=== PATIENT | male | born 1985 | race American Indian/Alaskan Native ===

== ENCOUNTER 2017-01-27 02:20 | Emergency (ER) | payer SELFPAY ==
[2017-01-27 04:40] LABS: Anion Gap 22 mmol/L; BUN/Creatinine Ratio 17.14; Basophils % (Auto) 0.5 % (0.0-1.8); Blood Urea Nitrogen 12 mg/dL (9-20); Calcium 8.7 mg/dL (8.4-10.2); Carbon Dioxide 22 mmol/L (22-30); Chloride 98.8 mmol/L (98-107); Eosinophils % (Auto) 0.1 % (0.0-4.3); Glucose 114 mg/dL (75-100); Hematocrit 47.6 % (35.5-45.6); Hemoglobin 16.1 gm/dl (11.8-15.2); Mean Corpuscular HGB Conc 34 % (32-34); Mean Corpuscular Hemoglobin 33 pg (28-32); Mean Corpuscular Volume 97 fl (84-94); Platelet Count 226 K/mm3 (140-440); Potassium 3.7 mmol/L (3.6-5.0); Red Blood Count 4.92 M/mm3 (3.65-5.03); Sodium 139 mmol/L (137-145); White Blood Count 17.5 K/mm3 (4.5-11.0)
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
[2017-01-27] MEDS ORDERED: ANCEF/NS 1 GM/50 ML 1 GM/50 ML BAG IV ONE (05:40)
[2017-01-27] MEDS ORDERED: BOOSTRIX IM ONE (05:40)
[2017-01-27] MEDS ORDERED: NACL 0.9% 1000 ML 1,000 ML ONE (06:15)
[2017-01-27] MEDS ORDERED: NACL 0.9% 1000 ML 1,000 ML IV ONE ×2 (06:20→07:34)
[2017-01-27 06:32] VITALS: BP 136/89
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
[2017-01-27] MEDS ORDERED: DIPRIVAN 10 MG/ML 1,000 MG/100 ML BOTTLE IV SCH (07:00)
[2017-01-27] MEDS ORDERED: DIPRIVAN 10 MG/ML 1,000 MG/100 ML BOTTLE IV ONE (07:07)
[2017-01-27] MEDS ORDERED: ZEMURON IV ONE (07:30)
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
[2017-01-27] MEDS ORDERED: ATIVAN ONE (07:32)
[2017-01-27] MEDS ORDERED: ATIVAN IV ONE (07:45)
== END 2017-01-27 07:35 | disposition other institution (70) ==
LOC: ED 02:20
DX: S22.42XA Multiple fractures of ribs, left side, initial encounter for closed fracture (principal); S02.40DA Maxillary fracture, left side, initial encounter for closed fracture; S05.8X2A Other injuries of left eye and orbit, initial encounter; J98.2 Interstitial emphysema; F10.129 Alcohol abuse with intoxication, unspecified; R41.82 Altered mental status, unspecified; F17.200 Nicotine dependence, unspecified, uncomplicated
CPT/HCPCS: 31500; 36415; 70450; 70486; 71010; 72125; 80048; 85025; 90471; 90715; 96361; 96365; 96375; 99285; G0480; J0690; J2060; J2704; J7030; 80320

== ENCOUNTER 2017-05-12 10:59 | Emergency (ER) | payer SELFPAY ==
[2017-05-12 11:19] VITALS: BP 120/93
[2017-05-12] MEDS ORDERED: TORADOL IM ONE (11:40)
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
[2017-05-12 11:51] LABS: Basophils % (Auto) 1.5 % (0.0-1.8); Eosinophils % (Auto) 2.3 % (0.0-4.3); Hematocrit 43.5 % (35.5-45.6); Hemoglobin 15.2 gm/dl (11.8-15.2); Mean Corpuscular HGB Conc 35 % (32-34); Mean Corpuscular Hemoglobin 34 pg (28-32); Mean Corpuscular Volume 98 fl (84-94); Platelet Count 207 K/mm3 (140-440); Red Blood Count 4.44 M/mm3 (3.65-5.03); Red Cell Distribution Width 14.4 % (13.2-15.2); White Blood Count 4.9 K/mm3 (4.5-11.0)
[2017-05-12 11:55] LABS: Alanine Aminotransferase 69 units/L (7-56); Albumin 4.6 g/dL (3.9-5); Albumin/Globulin Ratio 1.4 %; Alkaline Phosphatase 74 units/L (35-129); Anion Gap 20 mmol/L; BUN/Creatinine Ratio 13; Blood Urea Nitrogen 8 mg/dL (9-20); Calcium 9.3 mg/dL (8.4-10.2); Carbon Dioxide 24 mmol/L (22-30); Chloride 100.5 mmol/L (98-107); Glucose 91 mg/dL (75-100); Potassium 3.9 mmol/L (3.6-5.0); Sodium 141 mmol/L (137-145)
== END 2017-05-12 13:26 | disposition home or self-care (01) ==
LOC: ED 10:59
DX: K02.9 Dental caries, unspecified (principal); K05.10 Chronic gingivitis, plaque induced; F17.210 Nicotine dependence, cigarettes, uncomplicated
CPT/HCPCS: 36415; 80053; 85025; 96372; 99283; J1885

== ENCOUNTER 2017-05-13 21:25 | Emergency (ER) | payer SELFPAY ==
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
[2017-05-14] MEDS ORDERED: NACL ONE (06:12)
--- NOTE | 2017-05-14 07:43 | Cat Scan Report ---
CT FACIAL BONES WITH CONTRAST History: Jaw swelling. Technique: Helical CT following IV contrast. Sagittal and coronal reformatted images. Comparison: 01/27/17. Findings: Internally fixated left mandible fracture and left inferior orbital wall fracture are noted since the previous examination. Fracture lines are still evident in the left mandible. There is minimal lucency surrounding the most superior screw which fixates the left mandible fracture. This could represent mild loosening or be associated with infection. Infection is thought less likely as there are no advanced inflammatory changes in this area. Please correlate with the patient. No new acute facial fracture is demonstrated. The sinuses are well aerated. Minimal mucosal thickening in the ethmoid air cells is noted. The mastoid air cells are within normal limits. There is mild nonspecific soft tissue swelling and skin thickening along the left jaw line. No abscess or soft tissue gas is visualized. No bony destruction to suggest osteomyelitis. No bulky adenopathy or necrotic lymph nodes. Impression: Internally fixated left facial fractures as described. Minimal lucency surrounding the most superior screw of the left mandibular fixation device. See above. No acute bony abnormality is detected. Nonspecific left facial soft tissue swelling. This may represent a cellulitis. No abscess is visualized.
[2017-05-14 08:29] VITALS: BP 124/70
== END 2017-05-14 08:28 | disposition home or self-care (01) ==
LOC: ED 21:25
DX: L03.211 Cellulitis of face (principal); F17.200 Nicotine dependence, unspecified, uncomplicated
CPT/HCPCS: 70487; 99283; Q9967

== ENCOUNTER 2017-06-02 21:10 | Emergency (ER) | payer SELFPAY ==
[2017-06-02 21:16] VITALS: BP 135/92
== END 2017-06-02 22:00 | disposition left against medical advice (07) ==
LOC: ED 21:10
DX: K08.89 Other specified disorders of teeth and supporting structures (principal); H92.09 Otalgia, unspecified ear; Z53.21 Procedure and treatment not carried out due to patient leaving prior to being seen by health care provider

== ENCOUNTER 2017-06-03 02:04 | Emergency (ER) | payer SELFPAY ==
[2017-06-03 02:18] VITALS: BP 132/94
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
[2017-06-03] MEDS ORDERED: TYLENOL #3 PO ONE (03:39)
[2017-06-03] MEDS ORDERED: MOTRIN PO ONE (03:39)
== END 2017-06-03 03:47 | disposition home or self-care (01) ==
LOC: ED 02:04
DX: K08.89 Other specified disorders of teeth and supporting structures (principal); F17.200 Nicotine dependence, unspecified, uncomplicated
CPT/HCPCS: 99282

== ENCOUNTER 2018-12-21 08:52 | Emergency (ER) | payer SELFPAY | END 2018-12-21 08:54 | disposition left against medical advice (07) | LOC: ED 08:52 | DX: F10.10 Alcohol abuse, uncomplicated (principal); Z53.21 Procedure and treatment not carried out due to patient leaving prior to being seen by health care provider ==

== ENCOUNTER 2018-12-25 03:56 | Emergency (ER) | payer SELFPAY ==
[2018-12-25 04:11] VITALS: BP 136/88
[2018-12-25] MEDS ORDERED: AMMONIA INHALANT IH ONE ×2 (05:06→05:08)
[2018-12-25] MEDS ORDERED: BOOSTRIX IM ONE (05:09)
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
== END 2018-12-25 06:39 | disposition home or self-care (01) ==
LOC: ED 03:56
DX: S61.232A Puncture wound without foreign body of right middle finger without damage to nail, initial encounter (principal); F17.200 Nicotine dependence, unspecified, uncomplicated; Z79.899 Other long term (current) drug therapy; X58.XXXA Exposure to other specified factors, initial encounter; Y93.89 Activity, other specified; Y92.89 Other specified places as the place of occurrence of the external cause; Y99.8 Other external cause status
CPT/HCPCS: 90471; 90715; 99281

== ENCOUNTER 2018-12-30 05:16 | Emergency (ER) | payer SELFPAY ==
[2018-12-30] MEDS ORDERED: AMMONIA INHALANT IH ONE (05:28)
--- NOTE | 2018-12-30 05:50 | XRay Report ---
PROCEDURE: XR CHEST ROUTINE 2V TECHNIQUE: PA and lateral chest radiographs were obtained. HISTORY: CP COMPARISONS: January 27, 2017. FINDINGS: Heart: Normal. Mediastinum/Vessels: Normal. Lungs/Pleural space: Lungs are expanded. There are no infiltrates.. There is no pleural effusion or pneumothorax. Bony thorax: There are multiple old healed left rib fractures.. IMPRESSION: Heart size is normal.. Lungs are expanded. There are no infiltrates.. There is no pleural effusion or pneumothorax. There are multiple old healed left rib fractures.. This document is electronically signed by Oh Blandon MD., December 30 2018 05:48:36 AM ET
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
[2018-12-30 08:53] LABS: Basophils % (Auto) 0.9 % (0.0-1.8); Eosinophils # (Auto) 0.1 K/mm3 (0.0-0.4); Eosinophils % (Auto) 1.5 % (0.0-4.3); Hematocrit 46.3 % (35.5-45.6); Lymphocytes # (Auto) 1.6 K/mm3 (1.2-5.4); Lymphocytes % (Auto) 30.3 % (13.4-35.0); Mean Corpuscular HGB Conc 35 % (32-34); Mean Corpuscular Volume 102 fl (84-94); Monocytes # (Auto) 0.4 K/mm3 (0.0-0.8); Platelet Count 160 K/mm3 (140-440); Red Blood Count 4.56 M/mm3 (3.65-5.03); Red Cell Distribution Width 13.6 % (13.2-15.2)
[2018-12-30 09:02] LABS: BUN/Creatinine Ratio 10; Blood Urea Nitrogen 8 mg/dL (9-20); Calcium 8.7 mg/dL (8.4-10.2); Hemolysis Index 32
[2018-12-30 09:12] LABS: Free T4 (Free Thyroxine) 1.23 ng/dL (0.76-1.46)
[2018-12-30 12:13] VITALS: BP 91/57
== END 2018-12-30 13:05 | disposition home or self-care (01) ==
LOC: ED 05:16
DX: R07.89 Other chest pain (principal); F17.200 Nicotine dependence, unspecified, uncomplicated
CPT/HCPCS: 36415; 71046; 80048; 84439; 84443; 84484; 85025; 85379; 93005; 93010

== ENCOUNTER 2018-12-31 08:44 | Emergency (ER) | payer SELFPAY ==
[2018-12-31 09:11] VITALS: BP 120/73
== END 2018-12-31 09:00 | disposition left against medical advice (07) ==
LOC: ED 08:44
DX: R07.89 Other chest pain (principal); Z53.21 Procedure and treatment not carried out due to patient leaving prior to being seen by health care provider

== ENCOUNTER 2019-01-04 02:34 | Emergency (ER) | payer SELFPAY ==
[2019-01-04 02:42] VITALS: BP 125/73
== END 2019-01-04 04:05 | disposition left against medical advice (07) ==
LOC: ED 02:34
DX: K08.89 Other specified disorders of teeth and supporting structures (principal); Z53.21 Procedure and treatment not carried out due to patient leaving prior to being seen by health care provider

== ENCOUNTER 2019-03-12 11:26 | Emergency (ER) | payer SELFPAY ==
[2019-03-12 11:44] VITALS: BP 121/91
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
[2019-03-12] MEDS ORDERED: FLEXERIL PO ONE (13:11)
[2019-03-12] MEDS ORDERED: TORADOL IM ONE (13:11)
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
== END 2019-03-12 14:44 | disposition home or self-care (01) ==
LOC: ED 11:26
DX: S82.002G Unspecified fracture of left patella, subsequent encounter for closed fracture with delayed healing (principal); F17.200 Nicotine dependence, unspecified, uncomplicated; X58.XXXD Exposure to other specified factors, subsequent encounter
CPT/HCPCS: 96372; 99282; J1885

== ENCOUNTER 2019-04-12 03:45 | Emergency (ER) | payer SELFPAY ==
[2019-04-12 03:50] VITALS: BP 130/80
[2019-04-12] MEDS ORDERED: HYDROcodone/ACETAMINOPHEN 5-325 MG TAB PO ONE (06:38)
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
== END 2019-04-12 06:58 | disposition home or self-care (01) ==
LOC: ED 03:45
DX: M25.562 Pain in left knee (principal); F17.200 Nicotine dependence, unspecified, uncomplicated; Z79.899 Other long term (current) drug therapy; X58.XXXA Exposure to other specified factors, initial encounter; Y93.89 Activity, other specified; Y92.098 Other place in other non-institutional residence as the place of occurrence of the external cause; Y99.8 Other external cause status
CPT/HCPCS: 99282

== ENCOUNTER 2019-04-19 00:48 | Emergency (ER) | payer SELFPAY ==
[2019-04-19 00:56] VITALS: BP 145/93
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
== END 2019-04-19 02:00 | disposition left against medical advice (07) ==
LOC: ED 00:48
DX: M25.562 Pain in left knee (principal)
CPT/HCPCS: 99281

== ENCOUNTER 2019-04-20 00:58 | Emergency (ER) | payer SELFPAY ==
[2019-04-20] MEDS ORDERED: ACETAMINOPHEN W/CODEINE 300-30 MG TAB PO ONE (01:48)
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
[2019-04-20 07:19] VITALS: BP 130/74
== END 2019-04-20 03:25 | disposition left against medical advice (07) ==
LOC: ED 00:58
DX: M25.562 Pain in left knee (principal); G89.29 Other chronic pain
CPT/HCPCS: 99282

== ENCOUNTER 2019-07-31 19:18 | Emergency (ER) | payer SELFPAY ==
[2019-07-31 19:54] VITALS: BP 116/72
== END 2019-07-31 20:30 | disposition left against medical advice (07) ==
LOC: ED 19:18
DX: H10.9 Unspecified conjunctivitis (principal); Z53.21 Procedure and treatment not carried out due to patient leaving prior to being seen by health care provider

== ENCOUNTER 2019-09-20 14:33 | Emergency (ER) | payer SELFPAY ==
[2019-09-20 14:52] VITALS: BP 123/92
--- NOTE | 2019-09-20 18:46 | Emergency Department Report ---
Chief Complaint: Upper Respiratory Infection Stated Complaint: FEVER Time Seen by Provider: 09/20/19 18:26 - HPI History of Present Illness: Patient is a 33-year-old male presents the emergency room with complaints of cold-like symptoms that began 2 days ago. He has associated dry cough, generalized body aches, 1 episode of vomiting, chills. He denies any diarrhea, fever, chest pain, shortness of breath. He states that 1 of his children is at home with cold-like symptoms as well. He denies any past medical history allergies to medications. He denies any daily medications. He states that he has been taking NyQuil and ibuprofen. He states that he is a smoker. Vitals are normal Patient is afebrile, no tachycardia, normal oxygen saturation on exam: Non toxic appearing, no acute distress atraumatic, normocephalic normal appearance of the eyes, PERRL, EOMI, no periorbital edema or ecchymosis moist mucus membranes clear nasal drainage bilateral nares, no sinus ttp, normal oropharynx, no tonsilar hypertrophy or exudates, normal TMs and canals bilateraly regular heart rate and rhythm, no gallops, no rubs, no murmurs breath sounds are clear bilaterally, no w/r/r, no respiratory distress, no stridor, no accessory muscle use, no decreased breath sounds A&O x4, no focal neuro deficit skin is warm, dry, intact Examination consistent with viral-like illness No clinical signs or symptoms of pneumonia, pharyngitis, otitis No clinical signs of dehydration Discussed the importance of oral rehydration with patient Discussed symptomatic and supportive care with patient Patient referred to a primary care physician Discussed strict return precautions with patient Medical screening examination performed and there is no threat to life or limb at this time - Exam Vital Signs: Vital Signs 09/20/19 14:49 Temperature 97.8 F Pulse Rate 90 Respiratory 20 Rate Blood Pressure 123/92 O2 Sat by Pulse 98 Oximetry MSE screening note: Focused history and physical exam performed. ED Disposition for MSE Clinical Impression: Viral illness Disposition: Z-07 MED SCREENING EXAM-LEFT Is pt being admited?: No Does the pt Need Aspirin: No Condition: Stable Instructions: Viral Syndrome (ED) Additional Instructions: Please increase your fluid intake over the next several days. May take Mucinex or TheraFlu [id number]. May alternate Tylenol or ibuprofen as needed for fever above 100.4 or greater. Follow-up with a primary care doctor in the next 3 to 5 days for reexamination. Return to the emergency room for any new or worsening symptoms including but not limited to shortness of breath, chest pain, productive cough with white or brown sputum, increasing fevers, inability to tolerate by mouth intake, etc. Referrals: CONCHIS FLANNERY MD [Staff Physician] - 3-5 Days [facility] [Outside] - 3-5 Days [facility] [Outside] - 3-5 Days Forms: Work/School Release Form(ED) Time of Disposition: 18:47 Print Language: MONGOLIAN
== END 2019-09-20 18:55 | disposition left against medical advice (07) ==
LOC: ED 14:33
DX: B34.9 Viral infection, unspecified (principal)
CPT/HCPCS: 99281

== ENCOUNTER 2019-10-09 19:08 | Emergency (ER) | payer SELFPAY ==
[2019-10-09 19:23] VITALS: BP 129/87
--- NOTE | 2019-10-09 19:25 | Emergency Department Report ---
Stated Complaint: MEDICAL CLEARANCE Time Seen by Provider: 10/09/19 19:18 - HPI History of Present Illness: This is a 33-year-old male nontoxic, well in appearance with no signs of distress presents to the ED for work excuse. Patient stated he was not at work for 2 days due to daughter sick. Patient stated he is asymptotic. Denies any pain or medical complaints. Patient denies any cough or URI symptoms. Patient denies any urinary symptoms. Patient denies any fever, chills, headache, nausea, vomiting, chest pain or shortness of breathe. denies any other symptoms or complaints. Denies any allergies or PMH. - Exam Physical Exam: normal physical exam. MSE screening note: Focused history and physical exam performed. Due to findings the following was ordered: ED Medical Decision Making - Medical Decision Making This is a 33-year-old male that presents with nonmedical emergency complaint. Patient is just requested for a work excuse. Patient denies any symptoms. Patient was instructed to Follow-up with a primary care doctor in 3-5 days or if symptoms worsen and continue return to emergency room as soon as possible. At time of discharge, the patient does not seem toxic or ill in appearance. No acute signs of distress noted. Patient agrees to discharge treatment plan of care. No further questions noted by the patient. ED Disposition for MSE Clinical Impression: Encounter to obtain excuse from work Disposition: Z-07 MED SCREENING EXAM-LEFT Is pt being admited?: No Does the pt Need Aspirin: No Condition: Stable Additional Instructions: Follow-up with a primary care doctor in 3-5 days or if symptoms worsen and continue return to emergency room as soon as possible. Referrals: JANIA LAW MD [Referring] - 3-5 Days CONCHIS FLANNERY MD [Staff Physician] - 3-5 Days [facility] [Provider Group] - 3-5 Days
== END 2019-10-09 19:40 | disposition left against medical advice (07) ==
LOC: ED 19:08
DX: Z02.79 Encounter for issue of other medical certificate (principal)
CPT/HCPCS: 99281